=== PATIENT | male | born 1940 ===

== ENCOUNTER 2016-10-07 10:00 | Emergency (ER) | payer MEDICARE, OTHER ==
[2016-10-07 10:16] VITALS: BP 134/79
--- NOTE | 2016-10-07 11:34 | UC ---
Skin Complaint HPI - HPI Summary HPI Summary: Patient presents with a past medical history of hemorrhoids, and reports one day onset of rectal burning. He denies rectal bleeding or constipation. He states no injury or trauma. He has been applying OTC hemorrhoid cream with no improvement. Denies nausea, vomiting, diarrhea or constipation. - History of Current Complaint Chief Complaint: [facility]CGI Time Seen by Provider: 10/07/16 11:04 Stated Complaint: PERSONAL Hx Obtained From: Patient Onset/Duration: Gradual Onset, Lasting Days Skin Exposure Onset/Duration: Days Ago Timing: Constant Onset Severity: Moderate Current Severity: Moderate Character: Pruritus Aggravating: Other - movment, position changes. Similar Episode/Dx as: hemorroids - Allergy/Home Medications Allergies/Adverse Reactions: Allergies Allergy/AdvReac Type Severity Reaction Status Date / Time No Known Allergies Allergy Verified 09/10/12 13:17 Home Medications: Home Medications Ezetimibe 10 mg PO 10/07/16 [History] Finasteride [Proscar] 5 mg PO 10/07/16 [History] Tamsulosin HCl [Flomax] 0.4 mg PO 10/07/16 [History] Review of Systems Gastrointestinal: Other - hemorriods All Other Systems Reviewed And Are Negative: Yes PMH/Surg Hx/FS Hx/Imm Hx Previously Healthy: Yes - Surgical History Surgical History: Yes Surgery Procedure, Year, and Place: appy - Family History Known Family History: Positive: Cardiac Disease, Hypertension - Social History Occupation: Retired Alcohol Use: Daily Substance Use Type: None Smoking Status (MU): Light Every Day Tobacco Smoker Type: Cigarettes Physical Exam Triage Information Reviewed: Yes Appearance: Well-Appearing Vital Signs: Initial Vital Signs Temp 97.6 F 10/07/16 10:12 Pulse 65 10/07/16 10:12 Resp 18 10/07/16 10:12 BP 134/79 10/07/16 10:12 Pulse Ox 98 10/07/16 10:12 Vital Signs Reviewed: Yes Eye Exam: Normal ENT Exam: Normal Neck exam: Normal Respiratory Exam: Normal Cardiovascular Exam: Normal Abdominal Exam: Normal - rectal skin tags and external hemorriods noted. no thrombos hemorroids noted, no internal hemorriods noted. Skin Exam: Normal Course/Dx - Course Course Of Treatment: Patient presents with nonthrombosed rectal external hemorroids. He was RX anusol supp and referred to the general surgeon for follow up. - Differential Diagnoses - Skin Complaint Differential Diagnoses: Other - hemorroids - Diagnoses Provider Diagnoses: hemorroids. Discharge - Discharge Plan Condition: Stable Disposition: HOME Prescriptions: Hydrocortisone SUPP* [Anusol HC Supp*] 25 mg OH DAILY #1 box Patient Education Materials: Hemorrhoids (ED) Referrals: Rashida Castillo MD [Primary Care Provider] - Wali Alva MD [Medical Doctor] -
== END 2016-10-07 11:35 | disposition home or self-care (01) ==
LOC: UCEAST 10:00
DX: K64.9 Unspecified hemorrhoids (principal); F17.210 Nicotine dependence, cigarettes, uncomplicated
CPT/HCPCS: 99212; G0463